=== PATIENT | male | born 1960 | race Caucasian/White ===

== ENCOUNTER → 2021-08-14 15:39 | Outpatient (BNVA) | payer BC, SELFPAY | PROVIDERS: Family Provider Family Medicine; PCP Family Medicine; Visit Provider Surgery | DX: Z20.822 Contact with and (suspected) exposure to COVID-19 (principal) | CPT/HCPCS: 87635 ==

== ENCOUNTER 2021-08-21 07:55 | Day surgery (SDC) | payer BC, SELFPAY ==
--- NOTE | 2021-08-21 08:07 | ANES.PREANE2 ---
Pre-Anesthetic Assessment Pre-Anesthetic Assessment: Height/Weight: Height 1.83 m Weight 68.039 kg Preop Diagnosis: diagnostic Proposed Procedure: Operation Date: 08/21/21 09:15 Proposed Procedures p Colonoscopy 17840 K92.1(Not Applicable) - Farhan Parish MD Familial anesthetic complications: None Was Beta Frances taken within 24 hours: N/A Was Clonidine taken within 24 hours: N/A Last intake: > 8 hrs Social: Social History: Alcohol and Tobacco Packs per day: half a pint a day Exam: Pre-Anes Outpt Exam: alert, oriented x 3, clear to auscultation bilaterally and regular rate & rhythm Airway: Cervical ROM: WNL MP: 2 Dentition: False Neuropsych: Comments: was on lactulose for constipation last Anesthetic Plan: ASA status: 2 Anesthesia: MAC Risk of > 500 ml blood loss (7ml/kg in children): No PFSH Anesthesia PFSH: Medical History (Updated 08/11/21 @ 10:54 by Farhan Parish MD) Left ureteral calculus Surgical History (Updated 08/11/21 @ 10:54 by Farhan Parish MD) Hx of wisdom tooth extraction Social History Smoking and tobacco status: current every day smoker Alcohol intake: current Alcohol intake frequency: 3 or more drinks per day Adopted: No Caregiver/support person: No Lives independently: No Household members: spouse Marital status: Current occupational status: employed Data Anesthesia Cardiac Studies: No Data to Display
[2021-08-21] MEDS: sodium chloride 0.9% 1,000 ML 30 ML IV (08:18)
[2021-08-21 08:25] VITALS: BP 170/100; PULSE 80; RESP 18; TEMP 36.4; O2SAT 92
--- NOTE | 2021-08-21 09:31 | W.PM.OPSFHP ---
Same Day Surgery H&P Indication for Procedure/HPI DATE OF PROCEDURE: August 21, 2021 CHIEF COMPLAINT/INDICATIONFOR SURGICAL PROCEDURE: Hematochezia for colonoscopy PREOP DIAGNOSIS: diagnostic PLANNED PROCEDRUE: Operation Date: 08/21/21 09:15 Proposed Procedures p Colonoscopy 86761 K92.1(Not Applicable) - Farhan Parish MD Medications/Allergies* Allergies/Adverse Reactions Allergy/AdvReac Type Severity Reaction Status Date / Time No Known Allergies Allergy Verified 08/21/21 08:19 Current Medications: Generic Name Dose Route Start Last Admin Trade Name Freq PRN Reason Stop Dose Admin Sodium Chloride 1,000 mls @ 30 mls/hr 08/21/21 08:15 08/21/21 08:18 Sodium Chloride 0.9% IV 08/22/21 08:14 30 mls/hr .Q24H JULIANA Administration Pertinent History/Comorbid Conditions* Medical History (Updated 08/11/21 @ 10:54 by Farhan Parish MD) Left ureteral calculus Surgical History (Updated 08/11/21 @ 10:54 by Farhan Parish MD) Hx of wisdom tooth extraction Social History Smoking and tobacco status: current every day smoker Alcohol intake: current Alcohol intake frequency: 3 or more drinks per day Adopted: No Caregiver/support person: No Lives independently: No Household members: spouse Marital status: Current occupational status: employed Pertinent Exam Findings alert, oriented x 3 and regular rate & rhythm Recommendations Surgery/Procedure today Coding Level of Care Code Acute Health Data Administrator for Nannette Fowler
[2021-08-21 10:07] VITALS: BP 116/83; PULSE 84; RESP 18; TEMP 36.4; O2SAT 96
[2021-08-21 10:14] VITALS: BP 145/94; PULSE 76; RESP 18; TEMP 36.6; O2SAT 98
== END 2021-08-21 10:28 | disposition home or self-care (01) ==
PROVIDERS: PCP Family Medicine; Visit Provider Surgery
PROC: 0DJD8ZZ Inspection of Lower Intestinal Tract, Via Natural or Artificial Opening Endoscopic (ICD-10-PCS; CPT 45378; principal; 2021-08-21 09:15)
DX: K92.1 Melena (principal); F17.210 Nicotine dependence, cigarettes, uncomplicated; D12.0 Benign neoplasm of cecum; D12.4 Benign neoplasm of descending colon; D12.3 Benign neoplasm of transverse colon; D12.8 Benign neoplasm of rectum; K57.30 Diverticulosis of large intestine without perforation or abscess without bleeding; K64.8 Other hemorrhoids
CPT/HCPCS: 45380; 45385; 88305; 96360; 96361; J2704; J7030

== ENCOUNTER 2025-05-16 06:12 | Emergency (ER) | payer BC, SELFPAY ==
--- OUTSIDE RECORDS SUMMARY | 2025-05-16 06:17 | XMS_ITS | Clinical Summary ---
Author Organization [facility] Address [address] 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 60 Tablet 5 04/09/2025 Active triamcinolone acetonide (KENALOG) 0.5 % Cream Apply to affected area 2 times daily. 454 Gram 04/09/2025 Active Active Problems No known active problems Encounters Date Type Department Care Team Description 04/10/2025 Results Follow[facility]Up [facility] [address] [place] [address] Marshall Cunha MD CBC WITH DIFFERENTIAL, COMPLEMENT C3/C4 PANEL, HEPATIC FUNCTION PANEL, Additional followed-up results: 2 04/09/2025 1:00 PM CDT Office 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 Gender Identity Not on file Sexual Orientation Not on file Last Filed Vital Signs Vital Sign Reading Time Taken Comments Blood Pressure 146/80 04/09/2025 12:44 PM CDT Pulse 101 04/09/2025 12:44 PM CDT Temperature - - Respiratory Rate - - Oxygen Saturation 99% 04/09/2025 12:44 PM CDT Inhaled Oxygen Concentration - - Weight 63 kg (139 lb) 04/09/2025 12:44 PM CDT Height 180.3 cm (5' 11 ) 04/09/2025 12:44 PM CDT Body Mass Index 19.39 04/09/2025 12:44 PM CDT Plan of Treatment Upcoming Encounters Date Type Department Care Team (Late st Contact Info) Description 07/13/2025 11:30 AM CDT Office Visit [facility] [place] [address] Fred Plascencia MD [address] [place] [address] 09/24/2025 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 Office Visit [facility] [address] [place] [address] Marshall Cunha MD [address] [place] [address] Health Maintenance Due Date Last Done Comments DTAP/TDAP/TD VACCINES (1 - Tdap) 1981 ZOSTER VACCINE (1 of 2) 1981 COLORECTAL SCREENING 2007 Colorectal Cancer Screening 2007 FIT-DNA Q 3 years 2007 FIT/FOBT Q 1 year 2007 Flex Sig/CT Colonography Q 5 years 2007 Lung Cancer Screening 02/09/2012 RSV VACCINE (60+ or ) (1 - Risk 60-74 years 1-dose series) 2022 INFLUENZA VACCINE (#1) 2024 Procedures Procedure Name Priority Date/Time Associated Diagnosis Comments PROTEIN , RANDOM URINE Routine 04/09/2025 1:18 PM CDT Positive JOSE (antinuclear antibody) CREATININE Routine 04/09/2025 1:14 PM CDT Positive JOSE (antinuclear antibody) HEPATIC FUNCTION PANEL Routine 04/09/2025 1:14 PM CDT Positive JOSE (antinuclear antibody) COMPLEMENT C3/C4 PANEL Routine 04/09/2025 1:14 PM CDT Positive JOSE (antinuclear antibody) CBC WITH DIFFERENTIAL Routine 04/09/2025 1:14 PM CDT Positive JOSE (antinuclear antibody) from Last 3 Months Results * PROTEIN/CREATININE RATIO, URINE (04/09/2025 1:18 PM CDT) CREATININE, URINE 183 20 - 320 mg/dL [facility] PROTEIN/CREATIN INE RATIO, URINE 137 25 - 148 mg/g creat [facility] PROTEIN/CREATIN INE RATIO, URINE 0.137 0.025 - 0.148 mg/mg creat [facility] PROTEIN TOTAL, URINE 25 5 - 25 mg/dL [facility] Comment: FASTING:NO FASTING: NO Test Performed at: [facility] [address] [place] [address] Gee Reilly MD Urine URINE SPECIMEN OBTAINED BY CLEAN CATCH PROCEDURE / Unknown 04/09/2025 1:18 PM CDT 04/09/2025 1:19 PM CDT us Marshall Cunha MD URINE ORDERABLES Final R esult [facility] [phone] [place] [address] [place] [address] * COMPLEMENT C3/C4 PANEL (04/09/2025 1:14 PM CDT) [facility] COMPLEMENT C3 98 82 - 185 mg/dL [facility] COMPLEMENT C4 19 15 - 53 mg/dL [facility] Comment: FASTING:NO FASTING: NO Test Performed at: [address] [address] Gee Reilly MD Blood 04/09/2025 1:14 PM CDT 04/09/2025 1:15 PM CDT us Marshall Cunha MD CHEMISTRY ORDERABLES Fin al Result [facility] [phone] [address] * CBC WITH DIFFERENTIAL (04/09/2025 1:14 PM CDT) [facility] WBC 5.1 3.8 - 10.8 Thousand/u L [facility] RBC 4.24 4.20 - 5.80 Million/uL [facility] HEMOGLOBIN 13.4 13.2 - 17.1 g/dL [facility] HEMATOCRIT 39.9 38.5 - 50.0 % [facility] MCV 94.1 80.0 - 100.0 fL [facility] MCH 31.6 27.0 - 33.0 pg [facility] MCHC 33.6 32.0 - 36.0 g/dL [facility] Comment: For adults, a slight decrease in the calculated MCHC value (in the range of 30 to 32 g/dL) is most likely not clinically significant; however, it should be interpreted with caution in correlation with other red cell parameters and the patient's clinical condition. RDW 14.1 11.0 - 15.0 % [facility] PLATELETS 244 140 - 400 Thousand/u L [facility] MPV 10.0 7.5 - 12.5 fL [facility] NEUTROPHIL ABSOLUTE 3,361 1,500 - 7,800 cells/uL [facility] LYMPHOCYTE ABSOLUTE 1,025 850 - 3,900 cells/uL [facility] MONOCYTE ABSOLUTE 525 200 - 950 cells/uL [facility] EOSINOPHIL ABSOLUTE 168 15 - 500 cells/uL [facility] BASOPHILS ABSOLUTE 20 0 - 200 cells/uL [facility] NEUTROPHIL 65.9 % [facility] LYMPHOCYTES 20.1 % [facility] MONOCYTE 10.3 % [facility] EOSINOPHILS 3.3 % [facility] BASOPHILS 0.4 % [facility] Comment: FASTING:NO FASTING: NO Test Performed at: [facility] [address] [place] [address] Hung Archibald Blood 04/09/2025 1:14 PM CDT 04/09/2025 1:15 PM CDT Marshall Cunha MD HEMATOLOGY ORDERABLES Fi nal Result Performing Organization Address City/[facility] Co de Phone Number [facility] [phone] [facility] [address] [place] [address] * CREATININE (04/09/2025 1:14 PM CDT) CREATININE 0.87 0.70 - 1.35 mg/dL [facility] GFR 97 > OR = 60 mL/min/1.[address] [facility] Comment: Test Performed at: [facility] [address] [place] [address] Hung Archibald Blood 04/09/2025 1:14 PM CDT 04/09/2025 1:15 PM CDT Marshall Cunha MD CHEMISTRY ORDERABLES Fin al Result [facility] [phone] [facility] [address] [place] [address] * HEPATIC FUNCTION PANEL (04/09/2025 1:14 PM CDT) TOTAL PROTEIN 7.2 6.1 - 8.1 g/dL [facility] RR ALBUMIN 4.3 3.6 - 5.1 g/dL [facility] RR GLOBULIN 2.9 1.9 - 3.7 g/dL (calc) [facility] RR ALBUMIN/GLOBULIN RATIO 1.5 1.0 - 2.5 (calc) [facility] RR BILIRUBIN TOTAL 0.6 0.2 - 1.2 mg/dL [facility] BILIRUBIN DIRECT 0.1 < OR = 0.2 mg/dL [facility] RR BILIRUBIN INDIRECT 0.5 0.2 - 1.2 mg/dL (calc) [facility] RR ALKALINE PHOSPHATASE 52 35 - 144 U/L [facility] RR AST 24 10 - 35 U/L [facility] RR ALT 12 9 - 46 U/L [facility] RR Comment: FASTING:NO FASTING: NO Test Performed at: [facility] [address] [place] [address] Hung Archibald Blood 04/09/2025 1:14 PM CDT 04/09/2025 1:15 PM CDT us Marshall Cunha MD CHEMISTRY ORDERABLES Fin al Result [facility] [phone] [facility] [address] [place] [address] from Last 3 Months Insurance [id number] [address] BS BLUE ACCESS/TRUE [facility]UE [facility]
--- NOTE | 2025-05-16 07:09 | XRR_ITS ---
PROCEDURE INFORMATION: Exam: XR Right Wrist Exam date and time: 05/16/2025 7:26 AM Age: 65 years old Clinical indication: Injury or trauma; Fall; Blunt trauma (contusions or hematomas); Wrist; Right; Additional info: Pain TECHNIQUE: Imaging protocol: Radiologic exam of the right wrist. Views: 3 or more views. COMPARISON: No relevant prior studies available. FINDINGS: Bones/joints: Degenerative changes of the 1st carpometacarpal joint space. No evidence of fracture or dislocation Soft tissues: Normal. XR/XR wrist RT min 3V* [id number] IMPRESSION: Degenerative changes of the 1st carpometacarpal joint space. No evidence fracture or dislocation
[2025-05-16 08:01] VITALS: BP 178/84; PULSE 72; RESP 16; TEMP 36.6; O2SAT 100; BMI 20.2
--- NOTE | 2025-05-16 08:30 | ED_ITS ---
HPI - Extremity Problem General: Chief complaint: Extremity Injury, Upper Stated complaint: R wrist pain Time Seen by Provider: 05/16/25 08:30 History of Present Illness: 65-year-old man who presents emergency r oom with a right wrist injury. He fell on some steps some landed on his right wrist. He has some pain but no deformity. Neurovascular intact. No other injuries. No head injury. No loss of consciousness. Was concerned he might have fractured something. Related Data Previous Rx's ?Medication ?Instructions ?Recorded diclofenac sodium 50 mg 50 mg PO BID PRN pain #14 ta bs 05/16/25 tablet,delayed release Allergies Allergy/AdvReac Type Severity Reaction Status Date / Time No Known Allergies Allergy Verified 09/30/21 14:46 Review of Systems Narrative: Constitutional symptoms: Negative except as documented in HPI. Skin symptoms: Negative except as documented in HPI. Eye symptoms: Negative except as documented in HPI. ENMT symptoms: Negative except as documented in HPI. Respiratory symptoms: Negative except as documented in HPI. Cardiovascular symptoms: Negative except as documented in HPI. Gastrointestinal symptoms: Negative except as documented in HPI. Genitourinary symptoms: Negative except as documented in HPI. Musculoskeletal symptoms: Negative except as documented in HPI. Neurologic symptoms: Negative except as documented in HPI. Psychiatric symptoms: Negative except as documented in HPI. Endocrine symptoms: Negative except as documented in HPI. PFS ED PFSH: Medical History (Updated 05/16/25 @ 08:31 by Nyla Quiroga MD) Left ureteral calculus Surgical History (Updated 09/30/21 @ 16:30 by Farhan Parish MD) Status post colonoscopy (08/21/21) Internal hemorrhoids, cecum, transverse, descending, rectal polyp Hx of wisdom tooth extraction Social History Alcohol intake: current Alcohol intake frequency: 3 or more drinks per day Substance/Drug Use: unknown Adopted: No Caregiver/support person: No Lives independently: No Household members: spouse Marital status: Current occupational status: employed Physical Exam Narrative: EXAM NARRATIVE: General: Alert, no acute distress. Skin: warm and dry Head: Normocephalic Neck: Trachea midline Eye: Extraocular movements are intact. Ears, nose, mouth and throat: Oral mucosa moist Respiratory: Respirations are non-labored Musculoskeletal: Normal ROM, some pain with movement. No swelling. No deformities. Neurovascularly intact. Gastrointestinal: Abdomen does not appear distended Neurological: Alert and oriented, No focal neurological deficit observed. Psychiatric: Cooperative, appropriate mood & affect. Course Vital Signs: Vital signs: Vital Signs Temperature 97.9 F 05/16/25 08:01 Pulse Rate 72 05/16/25 08:01 Respiratory Rate 16 05/16/25 08:01 Blood Pressure 178/84 05/16/25 08:01 Pulse Oximetry 100 05/16/25 08:01 Oxygen Delivery Me thod Room Air 05/16/25 08:01 MDM - Extremity (Nontraumatic) Medical Decision Making X-ray of the right wrist: No acute fractures. There are some degenerative changes. This was reviewed and interpreted by myself the emergency room physician. I also reviewed the radiology report. Assessment and plan: Wrist injury - Discharged home - Discussed plan with patient. Answered any questions. - Evaluation and treatment of this problem were appropriate in the emergency setting. Lab Data Radiology Impressions Wrist X-Ray 05/16/25 07:09 IMPRESSION: Degenerative changes of the 1st carpometacarpal joint space. No evidence fracture or dislocation All radiology interpretation(s) finalized by discharge Discharge Plan Discharge Patient Disposition: Home Clinical Impression: Wrist injury Condition: Stable Prescriptions: New diclofenac sodium 50 mg tablet,delayed release (DR/EC) 50 mg PO BID PRN (Reason: pain) Qty: 14 0RF Discharge Orders: Discharge ED (Routine); Ordered 05/16/25 Ordered By: Nyla Quiroga Referrals: Albert Díaz MD [Primary Care Provider, Family Practice] Discharge Diet: Usual diet Discharge Activity: Increase activity as tolerated Patient Instructions: Opioid Safety, Pain Management, Patient Portal & A[place]ina Instructions Activity Restrictions/Additional Instructions: Thank you for choosing [facility] for your healthcare needs today. You have been screened and evaluated and felt safe for discharge. Health conditions do change or evolve sometimes and as such it is important that you follow up with your Primary Doctor to be re checked, 3-5 days is a general good time frame for follow up. You are always welcome to return to the ED for re assessment if your symptoms are worsening or you have new concerns Print Language: Sammarinese Coding Level of Care Code ED Through Operator for Nannette Fowler
[2025-05-16 08:35] VITALS: BP 174/93; PULSE 67; RESP 16; O2SAT 100
== END 2025-05-16 08:45 | disposition home or self-care (01) ==
PROVIDERS: Emergency Provider Emergency Medicine; PCP Family Medicine
DX: S69.91XA Unspecified injury of right wrist, hand and finger(s), initial encounter (principal); W10.9XXA Fall (on) (from) unspecified stairs and steps, initial encounter
CPT/HCPCS: 73110; 99283